=== PATIENT | female | born 1970 | race Caucasian/White ===

== ENCOUNTER → 2017-07-17 | Outpatient (CLI) | payer OTHER | LOC: M.RAD 10:20 | DX: Z12.31 Encounter for screening mammogram for malignant neoplasm of breast (principal) ==

== ENCOUNTER → 2019-02-05 | Outpatient (CLI) | payer OTHER | LOC: M.RAD 02-01 14:30 | DX: Z12.31 Encounter for screening mammogram for malignant neoplasm of breast (principal) ==

== ENCOUNTER → 2020-06-29 | Outpatient (CLI) | payer OTHER | LOC: M.RAD 13:00 | PROVIDERS: ATTEND Nurse Practitioner Family | DX: Z12.31 Encounter for screening mammogram for malignant neoplasm of breast (principal) ==